=== PATIENT | male | born 1990 | race African-American/Black ===

== ENCOUNTER 2017-11-11 03:35 | Emergency (ER) | payer MEDICAID ==
[~2017-11-11] VITALS: Ht 170.2 cm; Wt 95.0 kg
[2017-11-11 05:31] VITALS: BP 100/48
[2017-11-11] MEDS ORDERED: AZITHROMYCIN 500 MG TABLET PO ONE (08:00)
[2017-11-11] MEDS ORDERED: LIDOCAINE HCL 1% 20ML VIAL (Pyxis) INJ INFIL ONE (08:00)
[2017-11-11] MEDS ORDERED: CEFTRIAXONE SODIUM 250 MG/VIAL IM ONE (08:00)
[2017-11-11] MEDS ORDERED: LIDOCAINE HCL/PF 1% 10 MG/ML 5ML VIAL ONE (08:19)
[2017-11-15 04:18] LABS: CHLAMYDIA TRACHOMATIS NAA Negative (Negative); NEISSERIA GONORRHOEAE NAA Positive (Negative)
== END 2017-11-11 09:25 | disposition home or self-care (01) ==
LOC: ER 03:35
DX: Z20.2 Contact with and (suspected) exposure to infections with a predominantly sexual mode of transmission (principal); F12.10 Cannabis abuse, uncomplicated; F17.200 Nicotine dependence, unspecified, uncomplicated
CPT/HCPCS: 87491; 87591; 96372; 99284; J0696; J3490; Z7610

== ENCOUNTER 2022-01-10 14:05 | Emergency (ER) | payer MEDICAID ==
[~2022-01-10] VITALS: Ht 170.2 cm; Wt 87.6 kg
[2022-01-10 14:15] VITALS: BP 137/69
[2022-01-10] MEDS ORDERED: CEFTRIAXONE SODIUM 500 MG/VIAL IM ONE (15:15)
[2022-01-10] MEDS ORDERED: LIDOCAINE HCL 1% 20ML VIAL (Pyxis) INJ INFIL ONE (15:15)
[2022-01-10] MEDS ORDERED: DOXY100C5 MT (16:30)
[2022-01-13 04:07] LABS: NEISSERIA GONORRHOEAE NAA Positive (Negative)
== END 2022-01-10 16:38 | disposition home or self-care (01) ==
LOC: ER 14:05
DX: Z20.2 Contact with and (suspected) exposure to infections with a predominantly sexual mode of transmission (principal); R36.9 Urethral discharge, unspecified
CPT/HCPCS: 87491; 87591; 96372; 99283; J0696